=== PATIENT | female | born 2000 | race African-American/Black ===

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

== ENCOUNTER → 2021-07-05 | Outpatient (CLI) | payer OTHER ==
[~2021-07-05] MED LIST changes: +ACET325T9 PO; +NAPR275T59 PO
--- NOTE | 2021-07-05 10:26 | RAD ---
Exam: Right Upper Quadrant Ultrasound 07/05/2021 9:34 AM Indication: Right upper quadrant pain Technique: Multiple realtime grayscale sonographic images were obtained over the abdomen. Static imag es were submitted for interpretation. Comparisons: CT of the abdomen and pelvis March 17, 2016 Findings: The visualized portions of the pancreas are unremarkable. Visualized portions of aorta and IVC are un remarkable. The liver is normal in appearance. No focal hepatic lesions are identified. The liver is normal in size measuring 16 cm longitudinally. Portal vein flow is in the normal direction. The gallb ladder is normal in appearance without evidence of wall thickening, stones, or sludge. The right kidn ey is unremarkable in appearance measuring 11 cm longitudinally. The common bile duct is normal diame ter 4 mm. IMPRESSION: No sonographic evidence of acute abnormality Electronically signed by: David Knox MD (07/05/2021 10:23 AM) [id number]
== END ==
LOC: RAD 09:21
PROVIDERS: ATTEND Registered Nurse
DX: R10.11 Right upper quadrant pain (principal)
CPT/HCPCS: 76705

== ENCOUNTER → 2021-07-31 | Outpatient (CLI) | payer OTHER ==
[~2021-07-31] MED LIST changes: +IOHEXOL 300 MG/ML 75 ML VIAL. IV ONE
--- NOTE | 2021-07-31 09:57 | RAD ---
CT of the abdomen and pelvis without contrast. 07/31/2021 8:02 AM Indication: Right-sided flank pain x1 month Comparison Study: CT of the abdomen and pelvis without contrast March 17, 2016 Technique: Multidetector CT imaging of the abdomen pelvis is obtained without administration of cont rast. Findings: The visualized bilateral lung bases are clear. The liver, spleen, bilateral adrenal glands, gallbladder, and pancreas have a normal noncontrast enh anced appearance. The bilateral kidneys are grossly normal in appearance. There is no evidence of nep hrolithiasis or obstructive uropathy. The ureters are normal in course and caliber. The bladder is gr ossly unremarkable. There is no significant free fluid or free air in the abdomen or pelvis. There is no evidence of bowel obstruction or significant inflamatory change. The appendix is well visualized and grossly normal. There is no acute osseous abnormality identified. Impression: 1. No evidence of acute intra-abdominal abnormality 2. No evidence of nephrolithiasis or acute obstructive uropathy. CT DOSING PQRS STATEMENT: One or more of the following individualized dose reduction techniques were utilized for this examinat ion: 1. Automated exposure control 2. Adjustment of the mA and/or kV according to patient size 3. Use of iterative reconstruction technique Electronically signed by: David Knox MD (07/31/2021 9:55 AM) [id number]
== END ==
LOC: CT 07:27
PROVIDERS: ATTEND Family Medicine
DX: R10.11 Right upper quadrant pain (principal)
CPT/HCPCS: 74178; Q9967